=== PATIENT | female | born 1990 | race African-American/Black ===

== ENCOUNTER 2018-12-31 11:20 | Emergency (ER) | payer SELFPAY ==
[~2018-12-31] VITALS: Ht 165.1 cm; Wt 53.0 kg
[2018-12-31] MEDS ORDERED: ACETAMINOPHEN 325MG TABLET PO ONE (12:30)
[2018-12-31] MEDS ORDERED: ONDANSETRON HCL 4MG/2ML INJ IV ONE ×2 (12:30→13:30)
[2018-12-31 12:55] LABS: BASOPHILS % 0.2 % (0.0-2.0); HEMATOCRIT. 39.1 % (36.0-48.0); HEMOGLOBIN. 13.1 g/dL (12.0-16.0); LYMPHOCYTES % 8.7 % (20.0-50.0); MEAN CORPUSCULAR HEMOGLOBIN 30.7 pg (28.0-32.0); MEAN CORPUSCULAR VOLUME 92.1 fL (81.0-99.0); MEAN PLATELET VOLUME 8.1 fl (7.4-10.4); MONOCYTES % 4.9 % (2.0-8.0); NEUTROPHILS % 86.2 % (40.0-76.0); PLATELET 267 x1000/uL (130-400); RED BLOOD CELL COUNT 4.25 mill/uL (4.2-5.4); RED CELL DISTRIBUTION WIDTH 13.5 % (11.6-14.6)
[2018-12-31 12:58] LABS: CHLORIDE 106 mEq/L (98-107)
[2018-12-31 13:23] LABS: B-HCG QUANTITATIVE 56756 mIU/mL (<3)
[2018-12-31] MEDS ORDERED: SODIUM CHLORIDE 0.9% 1,000 ML IV ONE (13:30)
[2018-12-31] MEDS ORDERED: PROCHLORPERAZINE 10MG/2ML VIAL IM ONE (16:00)
[2018-12-31] MEDS ORDERED: POTASSIUM CHLORIDE 20MEQ TABLET SR PO ONE (19:00)
[2018-12-31 19:29] LABS: CLARITY URINE CLOUDY (CLEAR); COLOR URINE YELLOW (YELLOW); KETONES URINE 4+ (NEGATIVE); LEUKOCYTE ESTERASE URINE NEGATIVE (NEGATIVE); NITRITE URINE NEGATIVE (NEGATIVE); OCCULT BLOOD URINE NEGATIVE (NEGATIVE); PROTEIN URINE 1+ (NEGATIVE); SPECIFIC GRAVITY URINE 1.026 (1.005-1.030); UROBILINOGEN URINE 0.2 E.U./dL (0.2-1.0)
[2018-12-31 20:39] VITALS: BP 108/68
[2019-01-03 04:13] LABS: CHLAMYDIA TRACHOMATIS NAA Negative (Negative); NEISSERIA GONORRHOEAE NAA Negative (Negative)
== END 2018-12-31 20:46 | disposition home or self-care (01) ==
LOC: ER 11:20
DX: O20.0 Threatened abortion (principal); O21.9 Vomiting of pregnancy, unspecified; F12.10 Cannabis abuse, uncomplicated; Z3A.01 Less than 8 weeks gestation of pregnancy
CPT/HCPCS: 36415; 76801; 76817; 80053; 81003; 84702; 85025; 86850; 86900; 86901; 87491; 87591; 96372; 96374; 96376; 99284; J0780; J2405; J7030

== ENCOUNTER 2019-04-26 18:45 | Observation (INO) | payer OTHER ==
[~2019-04-26] VITALS: Ht 157.5 cm; Wt 45.4 kg
[2019-04-26] MEDS ORDERED: METOCLOPRAMIDE HCL 10MG/2ML VIAL IV SCH (19:30)
[2019-04-26] MEDS: DEXT 5%/LACTATED RINGERS 1,000 ML IV SCH ×2 (19:45→21:57)
[2019-04-26 20:43] LABS: CLARITY URINE CLOUDY (CLEAR); COLOR URINE YELLOW (YELLOW); KETONES URINE 4+ (NEGATIVE); LEUKOCYTE ESTERASE URINE NEGATIVE (NEGATIVE); NITRITE URINE NEGATIVE (NEGATIVE); OCCULT BLOOD URINE NEGATIVE (NEGATIVE); PH URINE 6.5 (4.5-8.0); PROTEIN URINE 2+ (NEGATIVE); SPECIFIC GRAVITY URINE 1.032 (1.005-1.030)
[2019-04-26] MEDS ORDERED: POTASSIUM CHLORIDE 20MEQ TABLET SR PO NR (21:30)
[2019-04-26] MEDS ORDERED: CEFAZOLIN 2,000 MG in DEXT 5% WATER 100 ML IV NR (22:00)
== END 2019-04-26 23:55 | disposition home or self-care (01) ==
LOC: 8 EST LDRP 18:45
PROVIDERS: ADMIT Obstetrics & Gynecology; ATTEND Obstetrics & Gynecology
DX: O21.2 Late vomiting of pregnancy (principal); Z3A.21 21 weeks gestation of pregnancy; O99.89 Other specified diseases and conditions complicating pregnancy, childbirth and the puerperium; M54.9 Dorsalgia, unspecified; O26.892 Other specified pregnancy related conditions, second trimester; R07.9 Chest pain, unspecified; Z3A.22 22 weeks gestation of pregnancy
CPT/HCPCS: 36415; 80051; 81003; 96365; 96375; 99281; G0378; J0690; J2765; J7060; 96360; 96361